=== PATIENT | female | born 1960 | race Caucasian/White ===

== ENCOUNTER 2016-03-31 13:11 | Day surgery (SDC) | payer OTHER ==
[~2016-03-31] VITALS: Ht 167.6 cm; Wt 63.8 kg
[2016-03-31 14:05] VITALS: Ht 167.6 cm; Wt 63.8 kg
[2016-03-31] MEDS ORDERED: LIDOCAINE 4% SOLUTION 50 ML BTL ONE (14:21)
[2016-03-31] MEDS ORDERED: MIDAZOLAM 1 MG/ML 2 ML INJ ONE ×2 (15:04)
[2016-03-31] MEDS ORDERED: FENTAnyl 50 MCG/ML VIAL ONE (15:04)
[2016-03-31 15:25] VITALS: BP 150/77; RESP 17
--- NOTE | 2016-04-01 04:16 | GILP ---
DATE OF PROCEDURE: 03/31/2016 PREOPERATIVE DIAGNOSES: Gastroesophageal reflux and abdominal pain. PROCEDURE DONE: Esophagogastroduodenoscopy and biopsy of the distal esophagus and stomach. POSTOPERATIVE DIAGNOSES: Esophagitis with almost 5 cm sliding hiatal hernia with early Schatzki rin g formation, mild esophagitis at the GE junction at 35 cm level, and stomach showed atrophic gastrit is. DESCRIPTION OF PROCEDURE: The patient was put in left lateral decubitus after obtaining informed co nsent. Posterior pharynx anesthetized with 4% Xylocaine. She received 3 mg IV Versed, 75 mcg of fe ntanyl. Very carefully, I advanced an Olympus video upper endoscope into the esophagus, stomach, an d duodenum. Examination demonstrated a large sliding hiatus hernia, almost 5 cm size, and the GE ju nction is at about 35 cm with esophagitis, early Schatzki ring formation but not obstructing. This was later photographed and biopsied. In the stomach, there was atrophic mucosa throughout the stoma ch including the body, fundus, and antrum. By retroflexion, hiatus hernia was also recognized. Bio psy was done randomly in the stomach also. Duodenum essentially is normal up to third part. Upon r emoval of the scope, the patient had no complication. Dear Dr. Manzano, Her complaints for gastroesophageal reflux are related to hernia and probably chronic reflux symptom s. Continue PPI. Recommend not only wait for biopsy report but continue to investigate with 24-didier r pH and esophageal motility studies. If necessary, esophagogram upper GI done will be done preoper atively if necessary that she needs surgical consultation later. Dictated By: EYAL RIVERA Conf#: [id number] DID#: [id number] CC: Sekou Manzano MD;*EndCC*
== END 2016-03-31 16:25 | disposition home or self-care (01) ==
LOC: GIL 13:11
PROVIDERS: ATTEND Internal Medicine
DX: K21.0 Gastro-esophageal reflux disease with esophagitis (principal); K44.9 Diaphragmatic hernia without obstruction or gangrene
CPT/HCPCS: 43239; 88305; 88312; 88313; J2250; J3010; Z7610

== ENCOUNTER 2018-05-10 08:15 | Day surgery (SDC) | payer OTHER ==
[~2018-05-10] VITALS: Ht 165.1 cm; Wt 61.2 kg
[2018-05-10] VITALS (22 sets, daily range): BP systolic 117–154; BP diastolic 65–84; PULSE 69–104; RESP 16–44; Ht 165.1 cm; Wt 61.2 kg
[~2018-05-10 08:15] MED LIST: EPHEDrine SULFATE 50 MG/5 ML SYG ONE; GLYCOPYRROLATE 0.4 MG INJ ONE; NEOSTIGMINE 3 MG/3 ML SYRINGE ONE
[2018-05-10] MEDS ORDERED: MET25 PO (09:09)
[2018-05-10] MEDS ORDERED: LACTATED RINGER'S 1,000 ML IV SCH (09:30)
--- NOTE | 2018-05-10 10:59 | PREAC ---
Date/Time of Note Date/Time of Note DATE: 05/10/18 TIME: 10:58 Anesthesia Eval and Record Evaluation Time Pre-Procedure Interview DATE: 05/10/18 TIME: 10:58 Age 57 Sex female NPO: 8 hrs Preoperative diagnosis chronic nasal obstruction Planned procedure bilateral laser turbinoplasty and septoplasty Past Medical History Past Medical History: Includes (gout) Surgery & Anesthesia Issues No known issue Meds Anticoagulation: No Beta Kimberly within 24 hr: No Reason Beta Kimberly not given: Pt. not on B-Kimberly Reported Medications Methotrexate* (Methotrexate*) 2.5 Mg Tab, 15 MG PO WEEKLY, TAB 05/10/18 Discontinued Reported Medications [none] No Conflict Check 06/28/15 Current Medications Lactated Ringer's 1,000 ml @ 30 mls/hr Q24H IV Last administered on 05/10/18at 09:24; Admin Dose 30 MLS/HR; Start 05/10/18 at 09:30 Meds reviewed: Yes Allergies Coded Allergies: codeine (Verified Adverse Reaction, Unknown, GI UPSET, 05/10/18) PER PT Allergies Reviewed: Yes Labs/Studies Labs Reviewed: Reviewed by anesthesiologist test: N/A Studies: ECG (normal sinus rhythm), CXR (no evidence for active cardiopulmonary disease) Pre-procedure Exam Last vitals Vital Signs Date Temp Pulse Resp B/P (MAP) Pulse Ox O2 O2 Flow FiO2 Time Delivery Rate 05/10/18 98.0 69 18 154/76 96 Room Air 09:09 (102) Airway: Adequate mouth opening, Adequate thyromental dist Mallampati: Mallampati II Teeth: Abnormal (no teeth on top and multiple missing on bottom) Lung: Normal Heart: Normal ASA Physical Status ASA physical status: 1 Emergency: None Planned Anesthetic General/MAC: ETT Planned Pain Management Parenteral pain med Pre-operative Attestations Prior to commencing anesthesia and surgery, the patient was re-evaluated, there was verification of: *The patient's identity *The results of appropriate recent lab work and preoperative vital signs *The above evaluation not changing prior to induction *Anesthetic plan, risk benefits, alternative and complications discussed with patient/family; questions answered; patient/family understands, accepts and wishes to proceed. JOSE LUIS TO MD May 10, 2018 10:59
--- NOTE | 2018-05-10 11:09 | HPN ---
Date/Time of Note Date/Time of Note DATE: 05/10/18 TIME: 11:08 Interval H&P Admission Note Pt. seen H&P reviewed: No system changes KIMBERLEY LEO M.D. May 10, 2018 11:09
[2018-05-10] MEDS ORDERED: LIDOCAINE 1%/EPI (1:100,000) (MDV) 20 ML ONE (11:19)
[2018-05-10] MEDS ORDERED: COCAINE 4% 4 ML TOP ONE (11:19)
[2018-05-10] MEDS ORDERED: BACITRACIN/POLYMYXIN 28.35 GM OINT TOP ONE (11:19)
[2018-05-10] MEDS ORDERED: HYDROmorphONE 1 MG/5 ML IV SYRINGE IV PRN (11:30)
[2018-05-10] MEDS ORDERED: ONDANSETRON 4 MG INJ IV PRN (11:30)
[2018-05-10] MEDS ORDERED: FENTAnyl 50 MCG/ML VIAL IV PRN (11:30)
[2018-05-10] MEDS ORDERED: OXYCODONE/ACETAMINOPHEN (5/325) TAB PO PRN (11:30)
[2018-05-10] MEDS ORDERED: DIPHENHYDRAMINE 50 MG INJ IV PRN (11:30)
[2018-05-10] MEDS ORDERED: PROCHLORPERAZINE 10 MG INJ IV PRN (11:30)
[2018-05-10] MEDS ORDERED: MEPERIDINE 25 MG INJ IV PRN (11:30)
[2018-05-10] MEDS ORDERED: MIDAZOLAM 1 MG/ML 2 ML INJ ONE (11:41)
[2018-05-10] MEDS ORDERED: ROCURONIUM 50 MG INJ ONE (11:42)
[2018-05-10] MEDS ORDERED: FENTAnyl 50 MCG/ML VIAL ONE (11:42)
[2018-05-10] MEDS ORDERED: PROPOFOL 20 ML ONE (11:42)
[2018-05-10] MEDS ORDERED: LIDOCAINE 2% (SDV) 5 ML INJ ONE (11:42)
[2018-05-10] MEDS ORDERED: CEFAZOLIN 1 GM INJ ONE (11:58)
[2018-05-10] MEDS ORDERED: ONDANSETRON 4 MG INJ ONE (12:07)
[2018-05-10] MEDS ORDERED: DEXAMETHASONE 4 MG/ML 5 ML INJ ONE (12:07)
[2018-05-10] MEDS ORDERED: FAMOTIDINE 20 MG INJ ONE (12:07)
--- NOTE | 2018-05-10 12:45 | OPR ---
Date/Time of Note Date/Time of Note DATE: 05/10/18 TIME: 12:40 Operative Report Procedure Date: May 10, 2018 Preoperative Diagnosis 1 LEFT NASAL SEPTAL DEVIATION. 2. BILATERAL NASAL TURBINATE TISSUE HYPERTROPHY. 3. CHRONIC NASAL OBSTRUCTION. Postoperative Diagnosis SAME. Operation/Procedure Performed 1. SEPTOPLASTY VIA SMR. 2. BILATERAL NASAL LASER KTP 532 NM LASER TURBINATE REDUCTION. Surgeon see signature line Deputy Brand Inspector NONE. Anesthesia Type: general (TOPICAL 4% 4 CC COCCAINE SOLN. 12 CC 1% LIDOCAINE WITH EPI 1:100,000 SOLN.) Estimated Blood Loss: 0 - 10 ml's Transfusion none Specimen SEPTAL CARTILAGE AND BONE. Grafts/Implants none Tubes/Drains NONE. Complications none Pt Condition Post Procedure: stable Disposition: PACU Procedure Description SEE DICTATED OPERATIVE REPORT. KIMBERLEY LEO M.D. May 10, 2018 12:45
--- NOTE | 2018-05-10 12:49 | PDOCDIS ---
Discharge Instructions DIAGNOSIS Discharge Diagnosis 1 LEFT NASAL SEPTAL DEVIATION. 2. BILATERAL NASAL TURBINATE TISSUE HYPERTROPHY. 3. CHRONIC NASAL OBSTRUCTION. CONDITION [id number] Patient Condition: [id number] Good HOME CARE INSTRUCTIONS: [id number] Diet Instructions: Soipa3v Regular ACTIVITY: [id number] Activity Restrictions: [id number] Slowly Increase Activity Rest between Activity Avoid heavy lifting Avoid Heavy Housework [id number] Bathing Restrictions: [id number] Tub Bath FOLLOW UP/APPOINTMENTS Follow-up Plan FOLLOW UP ONE WEEK MY OFFICE. SCHOOL/WORK RELEASE May return to School/Work on: May 18, 2018 May return to School/Work with: No Restrictions KIMBERLEY LEO M.D. May 10, 2018 12:49
--- NOTE | 2018-05-10 13:10 | PAC ---
Date/Time of Note Date/Time of Note DATE: 05/10/18 TIME: 13:09 Post-Anesthesia Notes Post-Anesthesia Note Last documented vital signs Vital Signs Date Temp Pulse Resp B/P (MAP) Pulse Ox O2 O2 Flow FiO2 Time Delivery Rate 05/10/18 98.5 12:57 05/10/18 69 18 154/76 96 Room Air 09:09 (102) Activity: WNL Respiratory function: WNL Cardiovascular function: WNL Mental status: Baseline Pain reasonably controlled: Yes Hydration appropriate: Yes Nausea/Vomiting absent: Yes Comments BP: 122/75 HR: 96 RR: 15 T: 98 SaO2: 99% JOSE LUIS TO MD May 10, 2018 13:10
--- NOTE | 2018-05-10 14:43 | OPR ---
DATE OF OPERATION: 05/10/2018 SURGEON: Jayce Houston MD PREOPERATIVE DIAGNOSES: 1. Septal deviation. 2. Bilateral nasal turbinate tissue hypertrophy. 3. Chronic nasal obstruction. POSTOPERATIVE DIAGNOSES: 1. Septal deviation. 2. Bilateral nasal turbinate tissue hypertrophy. 3. Chronic nasal obstruction. OPERATION PERFORMED: 1. Septoplasty using KTP 532 nanometer laser. 2. Turbinoplasty procedure using submucosal resection technique. ESTIMATED BLOOD LOSS: Approximately 20 mL. COMPLICATIONS: None. SPECIMENS: Septal cartilage and bone sent to the lab for gross and microscopic evaluation. INDICATIONS: Ms. Peace Turner is a 57-year-old female with history of chronic nasal obstruction t reated with multiple nasal steroids and decongestants. Patient has continued nasal obstruction and w as found on CT scan evaluation to have left septal deviation with chronic nasal obstruction due to tu rbinate tissue hypertrophy. The patient is currently scheduled for today's procedure which includes bilateral laser turbinoplasty procedure with septoplasty procedure as indicated. Risks, benefits, an d alternatives have been explained thoroughly to the patient. They include infection, bleeding, scar formation, possible septal perforation and septal hematoma. She also understands the risks of gener al and local anesthetic agents and their possible complications. She has signed consent once her que stions were answered. ANESTHESIA: General anesthesia with orotracheal tube intubation. The patient also received topical cocaine 4% using 4 mL. The patient also received 12 mL of 1% lidocaine with epinephrine 1:100,000 as local infiltrate. The patient was also given IV Ancef 2 grams before the case was begun. FINDINGS DURING PROCEDURE: Left nasal septal deviation with enlarged turbinates with papillomatous d egenerative mucosal changes. DISPOSITION: The patient left the operating room in good and satisfactory condition. DESCRIPTION OF PROCEDURE: The patient was taken to the operating room, placed on the surgical table in supine position, made comfortable by the anesthesiologist. The patient had EKG, saturation monito r and blood pressure cuff applied. At this point, the patient was then brought under general anesthe heladio with a mask and IV infiltration. The patient was given IV sedation before being successfully tere tracheally intubated with orotracheal tube without any complications. Tube was taped to the lower li p in the midline area. At this point, the patient had a brief time-out with patient identification a nd procedure, and all were in agreement. At this point, the patient was then injected in the septum, floor of the nose and nasal spine with 5% lidocaine with epinephrine 1:100,000. The patient then aldridge d cocaine applied to the nasal area. The patient was draped out in usual fashion with wet towels agustin und the eyes and nose area in preparation for laser use. At this point, a KTP 5 during laser was the n made ready at 8 [employer]tree continuous power. The left inferior turbinate, which was injected with 1% li docaine with epinephrine was then reduced in size using a KTP 532 nanometer laser, was made wit h foot pedal activation. The inferior turbinate was noted to shrink in size as the nasal cavity was opened. The right side was done in a similar fashion as the turbinate was reduced in size. At this point, a nasal speculum was used to outfracture the inferior turbinate toward the medial wall of maxi llary sinus, giving greater patency to the nasal cavity. At this point, blood was removed with Frazi er suction from the nasal cavity and the posterior choanal region. At this point, a hemitransfixion incision was made in the left side of the septum and the anterior septal margin with #15 [employer] s tainless steel blade. At this point, a mucoperichondrial flap was elevated on the left side of the n ose to visualize the septal cartilage. There is a bone spur near the floor of the nose on the left s genesis of the nose. After dissection on the right side to elevate a mucoperichondrial flap the bony fra gment was removed. This left the nose with greater patency. The flap created was then sutured toget her with a 4-0 Vicryl suture in simple interrupted fashion. Bacitracin ointment was then applied to the nose with packing at the end of the procedure. A mustache dressing was placed beneath the nose. The patient tolerated the procedure well. The sponge and instrument counts were correct x3. There were no complications during the procedure. The patient was then reversed from general anesthetic ag ent, extubated and removed from the operating room. The patient is expected to be discharged home un less postoperative complications develop. Dictated By: JAYCE SCRUGGS/LISSETH Conf#: [id number] [facility]#: [id number]
== END 2018-05-10 15:30 | disposition home or self-care (01) ==
LOC: SDS 08:15
PROVIDERS: ATTEND Otolaryngology Otolaryngology/Facial Plastic Surgery
DX: J34.2 Deviated nasal septum (principal); J34.3 Hypertrophy of nasal turbinates; J34.89 Other specified disorders of nose and nasal sinuses
CPT/HCPCS: 30140; 30520; 88300; J0690; J1100; J2250; J2405; J3010; Z7512; Z7610; J2710